=== PATIENT | female | born 1955 | race Caucasian/White ===

== ENCOUNTER → 2016-06-14 | Outpatient (CLI) | payer OTHER ==
[~2016-06-14] MED LIST: ATOR40TA20 PO; CEPH-583 PO; METH10TA76 PO; PANT40TA32 PO
--- NOTE | 2016-06-14 14:41 | DI ---
Indication: ITS.REASON: N18.3 Chronic kidney disease, stage 3 (moderate) PROCEDURE: US RENAL: Encounter: Initial Comparison: None Technique: Grayscale and color Doppler sonographic imaging of both kidneys and bladder was performed. FINDINGS: Both kidneys are present with normal cortical thickness and echogenicity. There is mild right hydronephrosis which improves post void. Prominent right renal pelvis. No right renal mass or obvious stone disease. Left kidney appears sonographically normal. The right kidney measures 9.1 cm in length, and the left kidney measures 9.8 cm in length. Bladder appears sonographically normal without debris or mass. Bilateral ureteral jets were noted. Prevoid bladder volume was 473 mL. Post void residual volume of 19.9 mL. IMPRESSION: Mild right hydronephrosis. .
== END ==
LOC: IMA 12:57
PROVIDERS: ATTEND Internal Medicine Nephrology
DX: N18.3 Chronic kidney disease, stage 3 (moderate) (principal); N13.30 Unspecified hydronephrosis